=== PATIENT | male | born 1980 | race Caucasian/White ===

== ENCOUNTER → 2017-04-30 | Outpatient (CLI) | payer OTHER ==
[2017-04-30 21:14] LABS: ALT 51 U/L (21-72); AST 29 U/L (17-59); Alkaline Phosphatase 83 U/L (38-126); Anion Gap 12 mmol/L; Blood Urea Nitrogen 13 mg/dL (9-20); Calcium 9.7 mg/dL (8.4-10.2); Carbon Dioxide 23 mmol/L (22-30); Chloride 102 mmol/L (98-107); Cholesterol 189 mg/dL (<200); Glucose 229 mg/dL (74-99); HDL Cholesterol 43 mg/dL (40-60); Non-African American GFR(MDRD) >60 (>60 ml/min/1.73 sqM); Potassium 4.3 mmol/L (3.5-5.1); Sodium 137 mmol/L (137-145); Total Bilirubin 0.8 mg/dL (0.2-1.3); Total Protein 7.5 g/dL (6.3-8.2); Triglycerides 172 mg/dL (<150)
== END ==
LOC: MMGSC 11:16
PROVIDERS: ATTEND Family Medicine
DX: E11.9 Type 2 diabetes mellitus without complications (principal); I10 Essential (primary) hypertension
CPT/HCPCS: 36415; 80053; 80061; 83036

== ENCOUNTER → 2017-05-01 | Outpatient (CLI) | payer OTHER | END | disposition home or self-care (01) | LOC: MMGSC 13:35 | PROVIDERS: ATTEND Family Medicine | DX: E11.9 Type 2 diabetes mellitus without complications (principal) | CPT/HCPCS: 82043 ==

== ENCOUNTER → 2017-11-22 | Outpatient (CLI) | payer OTHER ==
[2017-11-22 18:51] LABS: ALT 54 U/L (21-72); AST 27 U/L (17-59); Albumin 4.4 g/dL (3.5-5.0); Alkaline Phosphatase 113 U/L (38-126); Anion Gap 10 mmol/L; Blood Urea Nitrogen 12 mg/dL (9-20); Calcium 9.9 mg/dL (8.4-10.2); Carbon Dioxide 30 mmol/L (22-30); Chloride 97 mmol/L (98-107); Cholesterol 166 mg/dL (<200); Glucose 275 mg/dL (74-99); HDL Cholesterol 38 mg/dL (40-60); LDL Cholesterol,Calculated 102 mg/dL (0-99); Potassium 4.3 mmol/L (3.5-5.1); Sodium 137 mmol/L (137-145); Total Bilirubin 1.1 mg/dL (0.2-1.3); Total Protein 7.4 g/dL (6.3-8.2); Triglycerides 128 mg/dL (<150)
[2017-11-22 18:58] LABS: Basophils % (A) 1 %; Eosinophils # (A) 0.3 k/uL (0-0.7); Eosinophils % (A) 5 %; HCT 49.8 % (39.0-53.0); HGB 16.6 gm/dL (13.0-17.5); Lymphocytes # (A) 2.2 k/uL (1.0-4.8); Lymphocytes % (A) 38 %; MCH 29.2 pg (25.0-35.0); MCHC 33.3 g/dL (31.0-37.0); MCV 87.8 fL (80.0-100.0); Mean Platelet Volume 7.5; Monocytes # (A) 0.4 k/uL (0-1.0); Monocytes % (A) 7 %; Neutrophils # (A) 2.8 k/uL (1.3-7.7); Neutrophils % (A) 49 %; Platelet Count 284 k/uL (150-450); RBC 5.67 m/uL (4.30-5.90); RDW 11.7 % (11.5-15.5); WBC 5.8 k/uL (3.8-10.6)
[2017-11-22 19:08] LABS: T4, Free (Free Thyroxine) 1.14 ng/dL (0.78-2.19)
[2017-11-23 04:00] LABS: Hemoglobin A1C 10.9 % (4.0-6.0)
== END | disposition home or self-care (01) ==
LOC: MMGSC 10:54
PROVIDERS: ATTEND Family Medicine
DX: E78.5 Hyperlipidemia, unspecified (principal); E11.9 Type 2 diabetes mellitus without complications
CPT/HCPCS: 36415; 80053; 80061; 83036; 84439; 84443; 85025

== ENCOUNTER → 2018-03-13 | Outpatient (CLI) | payer OTHER ==
[2018-03-13 19:22] LABS: ALT 40 U/L (21-72); AST 23 U/L (17-59); Albumin 4.1 g/dL (3.5-5.0); Alkaline Phosphatase 80 U/L (38-126); Anion Gap 12 mmol/L; Blood Urea Nitrogen 16 mg/dL (9-20); Calcium 9.2 mg/dL (8.4-10.2); Carbon Dioxide 26 mmol/L (22-30); Chloride 100 mmol/L (98-107); Cholesterol 132 mg/dL (<200); Glucose 231 mg/dL (74-99); HDL Cholesterol 42 mg/dL (40-60); LDL Cholesterol,Calculated 67 mg/dL (0-99); Potassium 4.3 mmol/L (3.5-5.1); Sodium 138 mmol/L (137-145); Total Bilirubin 1.5 mg/dL (0.2-1.3); Total Protein 6.8 g/dL (6.3-8.2); Triglycerides 115 mg/dL (<150)
[2018-03-14 01:32] LABS: Hemoglobin A1C 7.1 % (4.0-6.0)
== END | disposition home or self-care (01) ==
LOC: MMGSC 10:37
PROVIDERS: ATTEND Family Medicine
DX: I10 Essential (primary) hypertension (principal); E11.9 Type 2 diabetes mellitus without complications; E78.5 Hyperlipidemia, unspecified
CPT/HCPCS: 36415; 80053; 80061; 83036

== ENCOUNTER → 2020-10-13 | Outpatient (CLI) | payer OTHER | END | disposition home or self-care (01) | LOC: LABWHC1 15:39 | PROVIDERS: ATTEND Family Medicine | DX: Z20.828 Contact with and (suspected) exposure to other viral communicable diseases (principal) | CPT/HCPCS: U0003; C9803 ==

== ENCOUNTER 2021-08-11 18:30 | Emergency (ER) | payer OTHER ==
[2021-08-11] MEDS ORDERED: SODIUM CHLORIDE 0.9% 1,000 ML IV STA (19:04)
[2021-08-11] MEDS ORDERED: ONDANSETRON 4 MG/2 ML VIAL IVP STA (19:04)
[2021-08-11 19:18] VITALS: RESP 20
[2021-08-11 19:22] LABS: Basophils # (A) 0.1 k/uL (0-0.2); Basophils % (A) 1 %; Eosinophils # (A) 0.2 k/uL (0-0.7); Eosinophils % (A) 2 %; HCT 48.9 % (39.0-53.0); HGB 16.9 gm/dL (13.0-17.5); Lymphocytes # (A) 2.7 k/uL (1.0-4.8); Lymphocytes % (A) 37 %; MCH 30.4 pg (25.0-35.0); MCHC 34.5 g/dL (31.0-37.0); Mean Platelet Volume 7.4; Monocytes # (A) 0.4 k/uL (0-1.0); Monocytes % (A) 5 %; Neutrophils # (A) 3.8 k/uL (1.3-7.7); Neutrophils % (A) 52 %; Platelet Count 299 k/uL (150-450); RBC 5.55 m/uL (4.30-5.90); RDW 11.8 % (11.5-15.5); WBC 7.2 k/uL (3.8-10.6)
[2021-08-11 19:25] LABS: INR 1.1 (<1.2); Prothrombin Time 11.2 sec (9.0-12.0)
[2021-08-11 19:30] LABS: ALT 27 U/L (4-49); AST 25 U/L (17-59); African American GFR (CKD) >90 (>60 ml/min/1.73 sqM); Albumin 4.2 g/dL (3.5-5.0); Alkaline Phosphatase 103 U/L (38-126); Anion Gap 12 mmol/L; Blood Urea Nitrogen 15 mg/dL (9-20); Calcium 9.7 mg/dL (8.4-10.2); Carbon Dioxide 25 mmol/L (22-30); Chloride 98 mmol/L (98-107); Glucose 279 mg/dL (74-99); Non-African American GFR(CKD) >90 (>60 ml/min/1.73 sqM); Potassium 3.7 mmol/L (3.5-5.1); Sodium 135 mmol/L (137-145); Total Bilirubin 0.7 mg/dL (0.2-1.3)
--- NOTE | 2021-08-11 19:37 | XR ---
EXAMINATION TYPE: XR chest 2V DATE OF EXAM: 08/11/2021 COMPARISON: NONE HISTORY: Dizziness TECHNIQUE: 2 views FINDINGS: Heart and mediastinum are normal. Lungs are clear. Diaphragm is normal. Bony thorax is inta ct. There are chest leads. IMPRESSION: Normal chest.
--- NOTE | 2021-08-11 20:23 | ED ---
Dizziness HPI - General Chief Complaint: Dizziness Stated Complaint: near syncope, dizziness Time Seen by Provider: 08/11/21 18:55 Source: patient, RN notes reviewed Mode of arrival: ambulatory Limitations: no limitations - History of Present Illness Initial Comments: Patient is a 40-year-old male that presents to emergency department complaining of dizziness with past week. He notes he did follow up with his primary care this morning who gave him anti-dizzy medication. Patient states that he drinks approximately 2-3 bottles of water per day. He notes that he has no cardiac history other than panic attacks. He was otherwise a well appearing 40-year-old male in no apparent distress pain. He notes that he does have a mild headache that he gets from time to time. He denied any chest pain shortness of breath nausea vomiting diarrhea constipation fever fatigue chills. - Related Data Home Medications Medication Instructions Recorded Confirmed lisinopriL [Zestril] 5 mg PO DAILY 02/07/16 08/11/21 Atorvastatin [Lipitor] 10 mg PO DAILY 08/11/21 08/11/21 Empagliflozin [Jardiance] 25 mg PO DAILY 08/11/21 08/11/21 Insulin Glargine,Hum.rec.anlog 28 unit SQ DAILY 08/11/21 08/11/21 [Lantus Solostar Pen] Lansoprazole 15 mg PO DAILY 08/11/21 08/11/21 PARoxetine [Paxil] 20 mg PO DAILY 08/11/21 08/11/21 Pioglitazone [Actos] 30 mg PO DAILY 08/11/21 08/11/21 Allergies Allergy/AdvReac Type Severity Reaction Status Date / Time No Known Allergies Allergy Verified 08/11/21 21:00 Review of Systems ROS Statement: Those systems with pertinent positive or pertinent negative responses have been documented in the HPI. ROS Other: All systems not noted in ROS Statement are negative. Past Medical History Past Medical History: Hypertension History of Any Multi-Drug Resistant Organisms: None Reported Past Surgical History: No Surgical Hx Reported Past Psychological History: Anxiety Smoking Status: Never smoker Past Alcohol Use History: None Reported Past Drug Use History: None Reported General Exam Limitations: no limitations General appearance: alert, in no apparent distress Head exam: Present: atraumatic, normocephalic, normal inspection Eye exam: Present: normal appearance, PERRL, EOMI. Absent: scleral icterus, conjunctival injection, periorbital swelling Neck exam: Present: normal inspection Respiratory exam: Present: normal lung sounds bilaterally. Absent: respiratory distress, wheezes, rales, rhonchi, stridor Cardiovascular Exam: Present: regular rate, normal rhythm, normal heart sounds. Absent: systolic murmur, diastolic murmur, rubs, gallop, clicks Extremities exam: Present: normal inspection, full ROM, normal capillary refill. Absent: tenderness, pedal edema, joint swelling, calf tenderness Neurological exam: Present: alert, oriented X3 Expanded Patient oriented to: Present: person, place, time Speech: Present: fluid speech Cranial nerves: EOM's Intact: Normal, Nystagmus: Normal, Facial Sensation: Normal Cerebellar function: Finger to Nose: Normal, Heel to [place]: Normal Motor strength exam: RUE: 5, LUE: 5, RLE: 5, LLE: 5 Psychiatric exam: Present: normal affect, normal mood Skin exam: Present: warm, dry, intact, normal color. Absent: rash Course Vital Signs 08/11/21 08/11/21 08/11/21 18:35 19:16 19:18 Temperature 98.6 F Pulse Rate 99 Pulse Rate [ 92 Sitting Project Asst] Pulse Rate [ Standing] Pulse Rate [ 80 Supine Project Asst] Respiratory 18 20 20 Rate Blood Pressure 121/81 Blood Pressure 118/82 [Sitting] Blood Pressure [Standing] Blood Pressure 117/83 [Supine] O2 Sat by Pulse 99 Oximetry 08/11/21 08/11/21 19:20 20:25 Temperature Pulse Rate 78 Pulse Rate [ Sitting Project Asst] Pulse Rate [ 101 H Standing] Pulse Rate [ Supine Project Asst] Respiratory 20 20 Rate Blood Pressure 114/83 Blood Pressure [Sitting] Blood Pressure 114/68 [Standing] Blood Pressure [Supine] O2 Sat by Pulse 98 Oximetry EKG Findings - EKG Comments: EKG Findings:: Ventricular rate 80 bpm, NJ interval 172 ms, QRS duration 92 ms, QTC 438 ms, PRT axes 47//23. Normal sinus rhythm, normal ECG. Medical Decision Making - Medical Decision Making 40-year-old male complaining of dizziness for the past week. Labs, EKG, chest x-ray, orthostatic vitals, 1 L normal saline ordered. EKG within normal limits. Orthostatic vitals show significant increase in heart rate from supine to standing position. Went from 80-101 Labs: CBC within normal limits, troponin negative, CBC unremarkable. Chest x-ray negative for any acute process. CT of the brain ordered for continuing dizziness while in bed. CT negative for any acute process. Case discussed with Dr. Romero, patient discharge home. - Lab Data Result diagrams: 08/11/21 19:11 08/11/21 19:11 Lab Results 08/11/21 08/11/21 08/11/21 Range/Units 19:11 19:11 19:11 WBC 7.2 (3.8-10.6) k/uL RBC 5.55 (4.30-5.90) m/uL Hgb 16.9 (13.0-17.5) gm/dL Hct 48.9 (39.0-53.0) % MCV 88.0 (80.0-100.0) fL MCH 30.4 (25.0-35.0) pg MCHC 34.5 (31.0-37.0) g/dL RDW 11.8 (11.5-15.5) % Plt Count 299 (150-450) k/uL MPV 7.4 Neutrophils % 52 % Lymphocytes % 37 % Monocytes % 5 % Eosinophils % 2 % Basophils % 1 % Neutrophils # 3.8 (1.3-7.7) k/uL Lymphocytes # 2.7 (1.0-4.8) k/uL Monocytes # 0.4 (0-1.0) k/uL Eosinophils # 0.2 (0-0.7) k/uL Basophils # 0.1 (0-0.2) k/uL PT 11.2 (9.0-12.0) sec INR 1.1 (<1.2) Sodium (137-145) mmol/L Potassium (3.5-5.1) mmol/L Chloride (98-107) mmol/L Carbon Dioxide (22-30) mmol/L Anion Gap mmol/L BUN (9-20) mg/dL Creatinine (0.66-1.25) mg/dL Est GFR (CKD-EPI)AfAm (>60 ml/min/1.73 sqM) Est GFR (CKD-EPI)NonAf (>60 ml/min/1.73 sqM) Glucose (74-99) mg/dL Calcium (8.4-10.2) mg/dL Total Bilirubin (0.2-1.3) mg/dL AST (17-59) U/L ALT (4-49) U/L Alkaline Phosphatase (38-126) U/L Troponin I (0.000-0.034) ng/mL Total Protein (6.3-8.2) g/dL Albumin (3.5-5.0) g/dL Urine Color Light Yellow Urine Appearance Clear (Clear) Urine pH 6.0 (5.0-8.0) Ur Specific [place] 1.028 (1.001-1.035) Urine Protein Negative (Negative) Urine Glucose (UA) 4+ H (Negative) Urine Ketones Negative (Negative) Urine Blood Negative (Negative) Urine Nitrite Negative (Negative) Urine Bilirubin Negative (Negative) Urine Urobilinogen <2.0 (<2.0) mg/dL Ur Leukocyte Esterase Negative (Negative) 08/11/21 08/11/21 Range/Units 19:11 19:11 WBC (3.8-10.6) k/uL RBC (4.30-5.90) m/uL Hgb (13.0-17.5) gm/dL Hct (39.0-53.0) % MCV (80.0-100.0) fL MCH (25.0-35.0) pg MCHC (31.0-37.0) g/dL RDW (11.5-15.5) % Plt Count (150-450) k/uL MPV Neutrophils % % Lymphocytes % % Monocytes % % Eosinophils % % Basophils % % Neutrophils # (1.3-7.7) k/uL Lymphocytes # (1.0-4.8) k/uL Monocytes # (0-1.0) k/uL Eosinophils # (0-0.7) k/uL Basophils # (0-0.2) k/uL PT (9.0-12.0) sec INR (<1.2) Sodium 135 L (137-145) mmol/L Potassium 3.7 (3.5-5.1) mmol/L Chloride 98 (98-107) mmol/L Carbon Dioxide 25 (22-30) mmol/L Anion Gap 12 mmol/L BUN 15 (9-20) mg/dL Creatinine 0.76 (0.66-1.25) mg/dL Est GFR (CKD-EPI)AfAm >90 (>60 ml/min/1.73 sqM) Est GFR (CKD-EPI)NonAf >90 (>60 ml/min/1.73 sqM) Glucose 279 H (74-99) mg/dL Calcium 9.7 (8.4-10.2) mg/dL Total Bilirubin 0.7 (0.2-1.3) mg/dL AST 25 (17-59) U/L ALT 27 (4-49) U/L Alkaline Phosphatase 103 (38-126) U/L Troponin I <0.012 (0.000-0.034) ng/mL Total Protein 7.0 (6.3-8.2) g/dL Albumin 4.2 (3.5-5.0) g/dL Urine Color Urine Appearance (Clear) Urine pH (5.0-8.0) Ur Specific [place] (1.001-1.035) Urine Protein (Negative) Urine Glucose (UA) (Negative) Urine Ketones (Negative) Urine Blood (Negative) Urine Nitrite (Negative) Urine Bilirubin (Negative) Urine Urobilinogen (<2.0) mg/dL Ur Leukocyte Esterase (Negative) - EKG Data -: EKG Interpreted by Wi EKG shows normal: sinus rhythm Rate: normal EKG Comments: Ventricular rate 80 bpm, NJ interval 172 ms, QRS duration 92 ms, QTC 438 ms, PRT axes 47/9/23. Normal sinus rhythm, normal ECG. - Radiology Data Radiology results: report reviewed, image reviewed Chest x-ray: Normal chest. Disposition Clinical Impression: Dehydration, Orthostatic hypotension, Dizziness Disposition: HOME SELF-CARE Condition: Stable Instructions (If sedation given, give patient instructions): Dizziness (ED) Additional Instructions: Please return to the Emergency Department if symptoms worsen or any other concerns. Follow-up with business rules developer and neurologist as needed. Follow-up primary care 1-2 days. Increase oral fluids the next few days. Rest for the next few days. Is patient prescribed a controlled substance at d/c from ED?: No Referrals: Damaris Gaytan MD [Primary Care Provider] - 1-2 days Clay Potter MD [STAFF PHYSICIAN] - 1-2 days Celestino Woods MD [STAFF PHYSICIAN] - 1-2 days Time of Disposition: 21:08
[2021-08-11 20:28] LABS: Appearance,Urine Clear (Clear); Bilirubin,Urine Negative (Negative); Blood,Urine Negative (Negative); Color,Urine Light Yellow; Glucose,Urine (UA) 4+ (Negative); Ketones,Urine Negative (Negative); Leukocyte Esterase,Urine Negative (Negative); Nitrite,Urine Negative (Negative); Protein,Urine Negative (Negative); Specific Gravity,Urine 1.028 (1.001-1.035); Urobilinogen,Urine <2.0 mg/dL (<2.0)
--- NOTE | 2021-08-11 20:54 | CT ---
EXAMINATION TYPE: CT brain wo con DATE OF EXAM: 08/11/2021 COMPARISON: None HISTORY: dizziness CT DLP: 1143.4 mGycm Automated exposure control for dose reduction was used. Ventricles have normal size. There is no mass effect nor midline shift. There is no sign of intracran ial hemorrhage. Calvarium is intact. There is normal aeration of the mastoid sinuses. IMPRESSION: Negative unenhanced head CT scan.
[2021-08-11 21:49] VITALS: BP 119/89; PULSE 76; TEMP 98.7
== END 2021-08-11 21:49 | disposition home or self-care (01) ==
LOC: EC 18:30
DX: I95.1 Orthostatic hypotension (principal); E86.0 Dehydration; I10 Essential (primary) hypertension; F41.9 Anxiety disorder, unspecified; Z79.4 Long term (current) use of insulin; Z79.899 Other long term (current) drug therapy
CPT/HCPCS: 36415; 93005; 80053; 84484; 85025; 85610; 81003; 71046; 70450; 96374; 96361; 99284; J2405

== ENCOUNTER → 2021-08-23 | Outpatient (CLI) | payer OTHER ==
--- NOTE | 2021-08-23 13:00 | US ---
EXAMINATION TYPE: US carotid duplex BILAT DATE OF EXAM: 08/23/2021 COMPARISON: NONE CLINICAL HISTORY: R42 DIZZINESS. Dizziness, hypertension hyperlipidemia. EXAM MEASUREMENTS: RIGHT: Peak Systolic Velocity (PSV) cm/sec ----- Right CCA: 101.1 ----- Right ICA: 99.3 ----- Right ECA: 116.9 ICA/CCA ratio: 1.0 RIGHT: End Diastole cm/sec ----- Right CCA: 21.2 ----- Right ICA: 32.4 ----- Right ECA: 13.3 LEFT: Peak Systolic Velocity (PSV) cm/sec ----- Left CCA: 105.4 ----- Left ICA: 154.3 ----- Left ECA: 134.5 ICA/CCA ratio: 1.5 LEFT: End Diastole cm/sec ----- Left CCA: 20.5 ----- Left ICA: 38.0 ----- Left ECA: 18.3 VERTEBRALS (direction of flow): Right Vertebral: Antegrade Left Vertebral: Antegrade Rhythm: Normal Elevated velocities within left prox ICA, left mid ICA, and left ECA. IMPRESSION: No evidence for hemodynamically significant stenosis. Criteria for Assigning % of Stenosis / Diameter reduction (Estimation based on the indirect measurements of the internal carotid artery velocities (ICA PSV). 1. Normal (no stenosis)=ICA PSV < 125 cm/s: ratio < 2.0: ICA EDV<40 cm/s. 2. Less than 50% stenosis=ICA PSV < 125 cm/s: ratio < 2.0: ICA EDV<40 cm/s. 3. 50 to 69% stenosis=ICA PSV of 125 to 230 cm/s: ration 2.0 ? 4.0: ICA EDV 40-100 cm/s. 4. Greater than 70% stenosis to near occlusion= ICA PSV > 230 cm/s: ratio > 4.0: ICA EDV > 100 cm/s. 5. Near occlusion= ICA PSV velocities may be low or undetectable: variable ratio and ICA EDV. 6. Total occlusion=unable to detect flow.
== END | disposition home or self-care (01) ==
LOC: RADUSWWP 12:17
PROVIDERS: ATTEND Family Medicine
DX: R42 Dizziness and giddiness (principal); I10 Essential (primary) hypertension; E78.5 Hyperlipidemia, unspecified
CPT/HCPCS: 93880

== ENCOUNTER → 2021-08-28 | Outpatient (CLI) | payer OTHER ==
--- NOTE | 2021-08-28 13:01 | P.STRESS ---
- Stress Test Note Stress Test Results/Findings: Exam Performed: stress echo exercise Exam Date: 08/28/21 Reason for Exam: Vertigo Height: 5 ft 10 in Weight: 99.79 kg Protocol: Tyshawn Stage: 3 Duration of Exercise: 9:45 Resting Heart Rate: 96 Resting Blood Pressure: 101/54 Maximum Achieved Heart Rate: 162 Maximum Achieved Blood Pressure: 150/97 85% PMHR: 152 100% PMHR: 179 METS: Technologist Comment: Stress Test Results/Findings: Patient underwent exercise stress echo with a Tyshawn protocol treadmill stress test. Patient exercised into Stage 3 for a total of 9 minutes and 45 seconds reaching a total of and 0.3 METS. Patient's maximum heart rate was 162 which represented 91 % age-predicted maximum heart rate. Stress EKG portion: At baseline patient's EKG showed normal sinus rhythm, normal axis, no significant ST or T wave abnormalities. At peak exercise, EKG showed no significant change from baseline. Stress echo portion: 2-D echocardiogram was performed in the parasternal long, personal short, apical 2 and apical four-chamber views at rest, peak exercise and in recovery. At baseline, echocardiogram showed left ventricular ejection fraction 55% without wall motion abnormalities. With peak exercise, echocardiogram shows improvement in left ventricular ejection fraction, increase contractility, decrease in left ventricular end systolic dimension without wall motion abnormalities consistent with a normal response to exercise. Conclusions: 1. Normal EKG and echo response to exercise without evidence of inducible ischemia. 2. Good exercise capacity.
== END | disposition home or self-care (01) ==
LOC: RADNMMAIN 09:57
PROVIDERS: ATTEND Family Medicine
DX: R42 Dizziness and giddiness (principal)
CPT/HCPCS: 93351; Q9950

== ENCOUNTER → 2021-11-01 | Outpatient (CLI) | payer OTHER ==
[2021-11-01 10:08] VITALS: RESP 16
--- NOTE | 2021-11-01 10:16 | P.PAINCN ---
History of Present Illness - Reason for Consult Consult date: 11/01/21 - History of Present Illness Since 40 years old male with history of severe headache radiates from the base of the skull to the top of the head, patient reported that the symptoms started July 2021, its severely interfere with the quality of life, patient reported that he had a history of falling accident at work happened a year ago while he was at work when he fell from the platform on his head , at that time patient had the MRI of the brain and it was negative for any abnormalities and patient reported that he did fairly well, patient denies any aura befor the headache, he denies any visual changes, he denies any motor or sensory deficit, he denies any fever or night sweats, and was evaluated by neurologist Dr. Huang, he was diagnosed with bilateral occipital neuralgia and he was referred to [facility] pain clinic for bilateral occipital nerve block Past Medical History Past Medical History: Diabetes Mellitus, Hypertension Additional Past Medical History / Comment(s): HX PALPITATIONS., HEADACHES History of Any Multi-Drug Resistant Organisms: None Reported Past Surgical History: No Surgical Hx Reported Additional Past Surgical History / Comment(s): COLONOSCOPIES Past Anesthesia/Blood Transfusion Reactions: No Reported Reaction Smoking Status: Never smoker Medications and Allergies Home Medications Medication Instructions Recorded Confirmed Type lisinopriL [Zestril] 5 mg PO DAILY 02/07/16 11/01/21 History Atorvastatin [Lipitor] 10 mg PO DAILY 08/11/21 11/01/21 History Empagliflozin [Jardiance] 25 mg PO DAILY 08/11/21 11/01/21 History Insulin Glargine,Hum.rec.anlog 28 unit SQ DAILY 08/11/21 11/01/21 History [Lantus Solostar Pen] Lansoprazole 15 mg PO DAILY 08/11/21 11/01/21 History PARoxetine [Paxil] 20 mg PO DAILY 08/11/21 11/01/21 History Pioglitazone [Actos] 30 mg PO DAILY 08/11/21 11/01/21 History Insulin Aspart [NovoLOG Flexpen] 8 units SQ AC-BRKFST 10/30/21 11/01/21 History Allergies Allergy/AdvReac Type Severity Reaction Status Date / Time No Known Allergies Allergy Verified 11/01/21 09:52 Physical Exam Vitals: Vital Signs Resp 11/01/21 10:06 16 Physical Examinations : -Constitutiona : Cooperative , not in acute distress . -HEENT : nech : supple , no Lymphadenopathy , normal thyroid size . : eyes : no ptosis , no icterus, no photophobia . - neurologic : Cranial nerve II to XII intact , no focal neurological deffecit . -psychatric : alert , oriented X 3 , appropriate affect , intact judgment and insight . -Lymphatic : no Lymphadenopathy . - musculoskeltal : Cervical Spine motor stregnth in the deltoid and biceps, normal right side , normal Left side motor stregnth biceps and the wrist extensors normal right side ,normal left side . motor stregnth in the triceps muscle . normal Right side , normal Left side deep tendon reflexes normal at the biceps , normal at Brachioradialis , normal at triceps. cervical facet loading test: Positive Bilaterally Spurling test= negative Neck distraction test= negative. Pipe sign= negative Severe tenderness over the occipital nerve Bilaterally Lumber spine moter stegnth lower extremities ,thigh and legs 5/5 Right side , 5/5 Left side Assessment and Plan Plan: Assessment and plan=1-occipital neuralgia patient could benefit from bilateral occipital nerve block. Seizures risk and benefits and alternatives discussed with the patient he agreed with the preceding Time with Patient: Greater than 30 PQRS Measure Charge Sheet Measure #130: Documentation of Current Meds in Medical Chart: Patient's medications documented in chart Measure #226: Tobacco Use: Screen & Cessation Intervention: Pt not a tobacco user Measure #111: Pneumonia Vaccination: Pneumococcal vaccine NOT administered or previously given Measure #47: Advance Care Plan: Advance care planning discussed & documented, pt chose/unable to give Measure #412: Opioid Treatment Agreement: No documentation of signed opioid treatment agreement Measure #408: Opioid Therapy Follow-up Evaluation: Patient had NO f/u eval minimum every 3 months during opioid therapy Measure #317: Preventitive Care & Scrn High Bld Press & F/U: Normal blood pressure, f/u not required Measure #128: Body Mass Index (BMI) Screening & Follow-up: BMI documented within normal parameters Measure #131: Pain Assessment & Follow-up: Pain positive & plan documented, Follow-up scheduled Measure #431: Unhealthy Alcohol Use Preventative Care & Scrn: Patient not identified as an unhealthy alcohol user Mode of Arrival: Ambulatory - Pain Location Head Non-Pharmacological Interventions: Inactivity Pharmacological Interventions: PRN Medication PQRS Narrative: Pain Intensity [Head] 0 Scale Used Numeric (1 - 10) Hx Alcohol Use (MH) No Home Medications: Ambulatory Orders lisinopriL [Zestril] 5 mg PO DAILY 02/07/16 Atorvastatin [Lipitor] 10 mg PO DAILY 08/11/21 Empagliflozin [Jardiance] 25 mg PO DAILY 08/11/21 Insulin Glargine,Hum.rec.anlog [Lantus Solostar Pen] 28 unit SQ DAILY 08/11/21 Lansoprazole 15 mg PO DAILY 08/11/21 PARoxetine [Paxil] 20 mg PO DAILY 08/11/21 Pioglitazone [Actos] 30 mg PO DAILY 08/11/21 Insulin Aspart [NovoLOG Flexpen] 8 units SQ AC-BRKFST 10/30/21
[2021-11-01 10:20] VITALS: BP 138/86; PULSE 83; TEMP 98.1
== END ==
LOC: PNWHC3 09:43
PROVIDERS: ATTEND Specialist
DX: M54.81 Occipital neuralgia (principal); E11.9 Type 2 diabetes mellitus without complications; I10 Essential (primary) hypertension; Z79.4 Long term (current) use of insulin; Z79.84 Long term (current) use of oral hypoglycemic drugs; Z79.899 Other long term (current) drug therapy; Z87.891 Personal history of nicotine dependence
CPT/HCPCS: 99211

== ENCOUNTER 2021-12-21 11:36 | Day surgery (SDC) | payer OTHER ==
[2021-12-19 11:10] VITALS: BMI 31.5
[~2021-12-21 11:36] MED LIST: LACTATED RINGERS 1,000 ML IV SCH
[2021-12-21 12:18] VITALS: TEMP 98.1
[2021-12-21 12:27] LABS: Glucose,Whole Blood 96 mg/dL (75-99)
[2021-12-21] MEDS ORDERED: ONDANSETRON 4 MG/2 ML VIAL ONE (12:40)
[2021-12-21] MEDS ORDERED: fentaNYL (PF) 50 MCG/ML 2 ML AMP ONE (12:40)
[2021-12-21] MEDS ORDERED: ROPIVACAINE 5MG/ML 20ML VIAL ONE (12:40)
[2021-12-21] MEDS ORDERED: MIDAZOLAM 2 MG/2 ML VIAL ONE (12:40)
[2021-12-21] MEDS ORDERED: methylPREDNISolone ACETATE 40 MG/ML 1 ML VIAL ONE (12:40)
--- NOTE | 2021-12-21 12:53 | P.PCN ---
Date of Procedure: 12/21/21 Procedure(s) Performed: Preoperative diagnoses=1-Bilateral occipital neuralgia Postoperative diagnoses= same as preoperative diagnosis. Procedure= Bilateral Greater occipital nerve block Anesthesia= moderate sedation with Versed 2 mg and fentanyl 100 micrograms . Estimated blood loss=minimal. Procedure indication= the patient had a history of severe chronic neck pain ,and headache, diagnosed with occipital neuralgia exam was positive for severe tenderness over the occipital nerve bilaterally, she will be a good candidate occipital nerve block, patient failed conservative management Procedure description= the patient was seen and identified in the preoperative holding area, risks and benefits and alternative of the procedure and possible complications discussed with the patient, and he agreed with the preceding, patient signed the consent, an IV was started, and vital signs were monitored and were stable throughout the procedure, patient was placed in the sitting position or table and the neck area was prepped and draped with a sterile fashion, vital signs were closely monitored during the procedure, 25-gauge needle advanced 1 inch lateral to the occipital protuberance on the right side, at the location of the right occipital nerve , then after negative aspiration for heme and CSF and there was no paresthesia during the injection, 6 ml of Robivacaine 0.5% and 20 mg of Depo-Medrol injected after negative aspiration, the needle removed, and the entire same procedure was repeated for the left Greater occipital nerve. Patient tolerated the procedure well without any complication, The patient returned to supine position after the back was cleaned and a Band- Aid applied, the patient transported to recovery room in stable condition and he was monitored for 30 minutes before he was discharged home and then patient was reexamined before going home and patient was discharged in stable condition and patient will follow up with the pain clinic in a few weeks.
[2021-12-21 13:07] VITALS: RESP 16
[2021-12-21 13:39] VITALS: BP 108/71; PULSE 75
== END 2021-12-21 13:51 | disposition home or self-care (01) ==
LOC: ORPAIN 11:36
PROVIDERS: ATTEND Specialist
DX: M54.81 Occipital neuralgia (principal); E11.9 Type 2 diabetes mellitus without complications
CPT/HCPCS: 64405; J2250; J1030; J2405; J3010; J2795

== ENCOUNTER 2023-09-25 06:31 | Day surgery (SDC) | payer OTHER ==
[2023-09-24 09:58] VITALS: BMI 27.9
[2023-09-25] MEDS ORDERED: LACTATED RINGERS 1,000 ML IV SCH (06:46)
[2023-09-25] MEDS ORDERED: LIDOCAINE 1% (10MG/ML) FOR IV START INTRADERMA PRN (06:46)
[2023-09-25 07:00] VITALS: TEMP 98
[2023-09-25 07:02] LABS: Glucose,Whole Blood 87 mg/dL (70-110)
[2023-09-25] MEDS ORDERED: PROPOFOL 10 MG/ML 20 ML VIAL IV ONE (07:26)
[2023-09-25] MEDS ORDERED: LIDOCAINE 2% (PF) 20 MG/ML 5 ML VIAL ONE (07:26)
--- NOTE | 2023-09-25 07:46 | P.PCN ---
Date of Procedure: 09/25/23 Procedure(s) Performed: Brief history: Patient is a pleasant 42-year-old white male scheduled for an elective upper endoscopy as well as colonoscopy as a part of evaluation of abdominal pain, GERD and progressive weight loss of 30 pounds in the last 6 months duration Procedure performed: Esophagogastroduodenoscopy with biopsy Colonoscopy Preoperative diagnosis: Abdominal pain/GERD/progressive weight loss of 30 pounds in the last 6 months duration Anesthesia: MAC Procedure: After informed consent was obtained from the patient was brought into the endoscopy unit and IV sedation was administered by anesthesia under continuous monitoring. Initially upper endoscopy was done. The Olympus GF 160 video endoscope was inserted inserted into the mouth and esophagus intubated without any difficulty and was gradually advanced into the stomach and duodenum and carefully examined. The bulb and second part of the duodenum appeared normal. Biopsies were done from the duodenum to rule out celiac disease. The scope was then withdrawn into the stomach adequately insufflated with air and upon careful examination the antrum had mild gastritis and biopsies were done from this area. Mucosa of the body, cardia and fundus appeared normal. The scope was then withdrawn into the esophagus. small hiatal hernia but no The GE junction was located at 40 cm to the incisors. It appeared regular with no erythema erosions or ulcerations. Rest of the esophagus appeared normal. Patient tolerated the procedure well. At this time the patient continued to remain sedation. Initial digital rectal examination was normal. Olympus CF 160 video colonoscope was then inserted into the rectum and gradually advanced to the cecum without any difficulty. Careful examination was performed as the scope was gradually being withdrawn. The prep was excellent. The cecum, ascending colon, transverse colon, descending colon, sigmoid colon and rectum appeared normal. Retroflexion was performed in the rectum and no lesions were noted. Patient tolerated the procedure well. Impression: 1. Upper endoscopy revealed mild antral gastritis, duodenitis and small hiatal hernia 2. Colonoscopy was within normal limits with no evidence of colorectal neoplasia Recommendations: Findings of this examination were discussed with the patient as well as his family. He was advised to follow with the biopsy results. He'll be seen in office in 2 weeks. Recommend a repeat screening colonoscopy in 10 years
[2023-09-25 08:21] VITALS: BP 132/61; PULSE 76; RESP 20
[2023-09-25 08:24] LABS: Glucose,Whole Blood 78 mg/dL (70-110)
== END 2023-09-25 08:37 ==
LOC: ORWHC2ENDO 06:31
PROVIDERS: ATTEND Internal Medicine Gastroenterology
DX: K29.50 Unspecified chronic gastritis without bleeding (principal); K29.80 Duodenitis without bleeding; K21.9 Gastro-esophageal reflux disease without esophagitis; K44.9 Diaphragmatic hernia without obstruction or gangrene; I10 Essential (primary) hypertension; E78.5 Hyperlipidemia, unspecified; E11.9 Type 2 diabetes mellitus without complications; Z79.4 Long term (current) use of insulin; Z79.84 Long term (current) use of oral hypoglycemic drugs; Z79.899 Other long term (current) drug therapy
CPT/HCPCS: 88305; 45378; 43239; J2704; J2001